=== PATIENT | female | born 1990 | race African-American/Black ===

== ENCOUNTER 2016-07-12 07:40 | Emergency (ER) | payer OTHER ==
[2016-07-12] MEDS ORDERED: IBUPROFEN 800 MG TAB As Ordered ONE (08:04)
[2016-07-12] MEDS ORDERED: METHOCARBAMOL 500 MG TAB As Ordered ONE (08:04)
--- NOTE | 2016-07-12 08:13 | EDDOCDS ---
Nurse's Notes [facility] Name: Ryan Bonner Age: 25 yrs Sex: Female : 1990 Arrival Date: 07/12/2016 Time: 07:40 Bed I5 / M5 Private MD: Diagnosis: Strain of muscle, fascia and tendon at neck level Presentation: 07/12 07:47 Presenting complaint: Patient states: Left lateral neck pain after stretching this am. mlb1 Risk Factors No acute neurological deficit is noted. Adult Sepsis Screening: The patient does not have new or worsening altered mentation. Patient's respiratory rate is less than 22. Systolic blood pressure is greater than 100. Patient has a qSOFA score of 0- Negative Sepsis Screen. Suicide/Homicide risk assessment- the patient denies having any suicidal and/or homicidal ideations and does not present with any other emotional, behavioral or mental health complaints. Status: The patient is a dependent. Transition of care: patient was not received from another setting of care. 07:47 Acuity: VEL Level 4 mlb1 07:47 Method Of Arrival: Walkin/Carried/Asstd mlb1 Triage Assessment: 07:48 General: Appears distressed, uncomfortable, Behavior is cooperative, crying. Pain: mlb1 Location: left posterior aspect of neck and left lateral aspect of neck Pain currently is 9 out of 10 on a pain scale. HIV screening NA for this visit Offered previously. 08:11 Musculoskeletal: Reports pain in left lateral aspect of neck and left posterior aspect dy of neck. 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 none - PMHx: none; - PSHx: none; - Social history: Smoking status: Patient states was never smoker of tobacco. No barriers to communication noted, The patient speaks fluent Malawian, Speaks appropriately for age. - Family history: Not pertinent. - : The pt / caregiver states he / she is not on anticoagulants. Home medication list is obtained from the patient. - Exposure Risk Screening:: None identified. Screenin:10 Screening information is obtained from the patient. Fall risk: No risks identified. dy Assistance ADL's: requires no assistance with activities of daily living. Abuse/DV Screen: The patient / caregiver reports he/she is: not in a situation that causes fear, pain or injury. Nutritional screening: No deficits noted. Advance Directives: There is no active DNR order. home support is adequate. Assessment: 08:11 General: Appears in no apparent distress, Behavior is cooperative. Pain: Location: left dy lateral aspect of neck and left posterior aspect of neck. Neurological: Level of Consciousness is awake, alert, obeys commands, Oriented to person, place, time. Respiratory: Airway is patent Respiratory effort is even, unlabored. Derm: Skin is pink, warm & dry. Vital Signs: 07:49 BP 149 / 95; Pulse 110; Resp 16; Temp 99.6(TE); Pulse Ox 100% on R/A; Weight 52.16 kg mlb1 (R); Height 5 ft. 6 in. (167.64 cm) (R); Pain 9/10; 07:49 Body Mass Index 18.56 (52.16 kg, 167.64 cm) mlb1 Vitals: 07:49 Log In Time: July 12, 2016 at 07:41. mlb1 ED Course: 07:41 Patient visited by Mayra Tolentino Reg. hs2 07:41 Patient moved to Waiting hs2 07:47 Patient visited by Eleazar Nicholson, RN. mlb1 07:48 Triage Initiated mlb1 07:49 Patient visited by Eleazar Nicholson, RN. mlb1 07:49 Vani Blue,STEPHEN is Primary Nurse. mlb1 07:49 Patient moved to I5 / M5 mlb1 07:51 [facility]. btw 07:51 Sanjay Harding MD is Attending Physician. btw 07:51 Patient visited by Oc Chauhan PA. btw 07:58 [facility] is Referral Physician. btw 08:07 [facility] Payment Agreement was scanned into [employer] and attached to record. mm15 08:10 The patient / caregiver is instructed regarding the plan of care and ED course. Patient dy has correct armband on for positive identification. 08:10 No IV's were initiated during this patient's visit. No procedures done that require dy assistance. Administered Medications: 08:09 Drug: Methocarbamol 1 grams [methocarbamol 500 mg tablet (2 tabs)] Route: PO; dy 08:09 Drug: Ibuprofen 800 mg [ibuprofen 800 mg tablet (1 tabs)] Route: PO; dy Order Results: There are currently no results for this order. Outcome: 07:59 Discharge ordered by Provider. btw 08:10 Discharge Assessment: patient administered narcotics - no. The following High Risk dy Discharge criteria are identified: None. Discharged to home ambulatory. Condition: good. Discharge instructions given to patient, Instructed on discharge instructions, follow up and referral plans. medication usage, no driving heavy equipment, no drinking with medication, Demonstrated understanding of instructions, medications, Pt was receptive of discharge instructions/ teaching. Prescriptions given X 2. No special radiology studies were completed. Property sent home with patient. 08:11 Patient left the ED. dy Signatures: Zaire Osullivan RN RN Eleazar Santamaria RN RN mlb1 Oc Chauhan PA PA btw McGrath, Marlynn mm15 Mayra Tolentino, Reg Reg hs2 LEONID
--- NOTE | 2016-07-12 08:13 | EDDOCDS ---
Physician Documentation [facility] Name: Ryan Bonner Age: 25 yrs Sex: Female : 1990 Arrival Date: 07/12/2016 Time: 07:40 Bed I5 / M5 Private MD: Disposition: 07/12 08:05 [facility] pharmacy is closed so a printed RX was provided as there would be a delay in btw patient care to provide an electronic prescription. Disposition: 07/12/16 07:59 Discharged to Home/Self Care. Impression: Strain of muscle, fascia and tendon at neck level. - Condition is Stable. - Discharge Instructions: Muscle Cramps and Spasms, Mcnd-il-Varf, Muscle Strain, Ddky-gv-Gqec. - Prescriptions for Robaxin 500 mg Oral Tablet - take 1 tablet by ORAL route every 6 hours As needed; 40 tablet. Diclofenac Sodium 75 mg Oral Tablet, Delayed Release (E.C.) - take 1 tablet by ORAL route 2 times per day; 30 tablet. - Medication Reconciliation, Local Pharmacy Hours form. - Follow up: Constantin Nunez, [facility]; When: 1 - 2 days; Reason: Further diagnostic work-up, Recheck today's complaints, Continuance of care. - Problem is new. - Symptoms are unchanged. Historical: - Allergies: no known allergies; - Home Meds: 1. none - PMHx: none; - PSHx: none; - Social history: Smoking status: Patient states was never smoker of tobacco. No barriers to communication noted, The patient speaks fluent [place] Citizen, Speaks appropriately for age. - Family history: Not pertinent. - : The pt / caregiver states he / she is not on anticoagulants. Home medication list is obtained from the patient. - Exposure Risk Screening:: None identified. 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 6 in. (167.64 cm) (R); Pain 9/10; 07:49 Body Mass Index 18.56 (52.16 kg, 167.64 cm) mlb1 MDM: 07:58 Methocarbamol 1 grams PO once ordered. btw 07:58 Ibuprofen 800 mg PO once ordered. btw 08:03 Financial registration complete. mm15 08:07 [facility] Payment Agreement was scanned into [employer] and attached to record. mm15 Administered Medications: 08:09 Drug: Methocarbamol 1 grams [methocarbamol 500 mg tablet (2 tabs)] Route: PO; dy 08:09 Drug: Ibuprofen 800 mg [ibuprofen 800 mg tablet (1 tabs)] Route: PO; dy Signatures: Zaire Osullivan RN RN dy Eleazar Nicholson RN RN mlb1 Oc Chauhan PA PA btw Miley Keys mm15 The chart was reviewed and I authenticate all verbal orders and agree with the evaluation and treatment provided.Attachments: 08:07 [facility] Payment Agreement mm15 MTDD
--- NOTE | 2016-07-14 09:12 | EDDOCDS ---
Physician Documentation [facility] Name: Ryan Bonner Age: 25 yrs Sex: Female : 1990 Arrival Date: 07/12/2016 Time: 07:40 Bed I5 / M5 Private MD: Disposition: 07/12 08:05 [facility] pharmacy is closed so a printed RX was provided as there would be a delay in btw patient care to provide an electronic prescription. Disposition: 07/12/16 07:59 Discharged to Home/Self Care. Impression: Strain of muscle, fascia and tendon at neck level. - Condition is Stable. - Discharge Instructions: Muscle Cramps and Spasms, Sbmk-[id number]-[id number], Muscle Strain, Bqba-cz-Epav. - Prescriptions for Robaxin 500 mg Oral Tablet - take 1 tablet by ORAL route every 6 hours As needed; 40 tablet. Diclofenac Sodium 75 mg Oral Tablet, Delayed Release (E.C.) - take 1 tablet by ORAL route 2 times per day; 30 tablet. - Medication Reconciliation, Local Pharmacy Hours form. - Follow up: Constantin Nunez, [facility]; When: 1 - 2 days; Reason: Further diagnostic work-up, Recheck today's complaints, Continuance of care. - Problem is new. - Symptoms are unchanged. Historical: - Allergies: no known allergies; - Home Meds: 1. none - PMHx: none; - PSHx: none; - Social history: Smoking status: Patient states was never smoker of tobacco. No barriers to communication noted, The patient speaks fluent Zambian, Speaks appropriately for age. - Family history: Not pertinent. - : The pt / caregiver states he / she is not on anticoagulants. Home medication list is obtained from the patient. - Exposure Risk Screening:: None identified. 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 6 in. (167.64 cm) (R); Pain 9/10; 07:49 Body Mass Index 18.56 (52.16 kg, 167.64 cm) mlb1 MDM: 07:58 Methocarbamol 1 grams PO once ordered. btw 07:58 Ibuprofen 800 mg PO once ordered. btw 08:03 Financial registration complete. mm15 08: [facility] Payment Agreement was scanned into [employer] and attached to record. mm15 07/13 09:47 T-Sheet-- Draft Copy was scanned into [employer] and attached to record. gb Administered Medications: 07/12 08:09 Drug: Methocarbamol 1 grams [methocarbamol 500 mg tablet (2 tabs)] Route: PO; dy 08:09 Drug: Ibuprofen 800 mg [ibuprofen 800 mg tablet (1 tabs)] Route: PO; dy Signatures: Kyara Conklin, Reg Reg gb Zaire Osullivan RN RN dy Eleazar Nicholson RN RN mlb1 Oc Chauhan PA PA btw Miley Keys mm15 The chart was reviewed and I authenticate all verbal orders and agree with the evaluation and treatment provided.Attachments: [facility] Payment Agreement mm15 07/13 09:47 T-Sheet-- Draft Copy gb Chart Complete MTDD
--- NOTE | 2016-07-14 09:13 | EDDOCDS ---
Physician Documentation [facility] Name: Ryan Bonner Age: 25 yrs Sex: Female : 1990 Arrival Date: 07/12/2016 Time: 07:40 Bed I5 / M5 Private MD: Disposition: 07/12 08:05 [facility] pharmacy is closed so a printed RX was provided as there would be a delay in btw patient care to provide an electronic prescription. Disposition: 07/12/16 07:59 Discharged to Home/Self Care. Impression: Strain of muscle, fascia and tendon at neck level. - Condition is Stable. - Discharge Instructions: Muscle Cramps and Spasms, Xujs-es-Cnak, Muscle Strain, Wrkz-bq-Ttbr. - Prescriptions for Robaxin 500 mg Oral Tablet - take 1 tablet by ORAL route every 6 hours As needed; 40 tablet. Diclofenac Sodium 75 mg Oral Tablet, Delayed Release (E.C.) - take 1 tablet by ORAL route 2 times per day; 30 tablet. - Medication Reconciliation, Local Pharmacy Hours form. - Follow up: Constantin Nunez, [facility]; When: 1 - 2 days; Reason: Further diagnostic work-up, Recheck today's complaints, Continuance of care. - Problem is new. - Symptoms are unchanged. Historical: - Allergies: no known allergies; - Home Meds: 1. none - PMHx: none; - PSHx: none; - Social history: Smoking status: Patient states was never smoker of tobacco. No barriers to communication noted, The patient speaks fluent Nauruan, Speaks appropriately for age. - Family history: Not pertinent. - : The pt / caregiver states he / she is not on anticoagulants. Home medication list is obtained from the patient. - Exposure Risk Screening:: None identified. 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 6 in. (167.64 cm) (R); Pain 9/10; 07:49 Body Mass Index 18.56 (52.16 kg, 167.64 cm) mlb1 MDM: 07:58 Methocarbamol 1 grams PO once ordered. btw 07:58 Ibuprofen 800 mg PO once ordered. btw 08:03 Financial registration complete. mm15 08: [facility] Payment Agreement was scanned into [employer] and attached to record. mm15 07/13 09:47 T-Sheet-- Draft Copy was scanned into [employer] and attached to record. gb Administered Medications: 07/12 08:09 Drug: Methocarbamol 1 grams [methocarbamol 500 mg tablet (2 tabs)] Route: PO; dy 08:09 Drug: Ibuprofen 800 mg [ibuprofen 800 mg tablet (1 tabs)] Route: PO; dy Signatures: Kyara Conklin, Reg Reg gb Zaire Osullivan RN RN dy Eleazar Nicholson RN RN mlb1 Oc Chauhan PA PA btw Miley Keys mm15 The chart was reviewed and I authenticate all verbal orders and agree with the evaluation and treatment provided.Attachments: [facility] Payment Agreement mm15 07/13 09:47 T-Sheet-- Draft Copy gb Chart Complete MTDD
--- NOTE | 2016-07-14 09:13 | EDDOCDS ---
Nurse's Notes [facility] Name: Ryan Bonner Age: 25 yrs Sex: Female : 1990 Arrival Date: 07/12/2016 Time: 07:40 Bed I5 / M5 Private MD: Diagnosis: Strain of muscle, fascia and tendon at neck level Presentation: 07/12 07:47 Presenting complaint: Patient states: Left lateral neck pain after stretching this am. mlb1 Risk Factors No acute neurological deficit is noted. Adult Sepsis Screening: The patient does not have new or worsening altered mentation. Patient's respiratory rate is less than 22. Systolic blood pressure is greater than 100. Patient has a qSOFA score of 0- Negative Sepsis Screen. Suicide/Homicide risk assessment- the patient denies having any suicidal and/or homicidal ideations and does not present with any other emotional, behavioral or mental health complaints. Status: The patient is a dependent. Transition of care: patient was not received from another setting of care. 07:47 Acuity: VEL Level 4 mlb1 07:47 Method Of Arrival: Walkin/Carried/Asstd mlb1 Triage Assessment: 07:48 General: Appears distressed, uncomfortable, Behavior is cooperative, crying. Pain: mlb1 Location: left posterior aspect of neck and left lateral aspect of neck Pain currently is 9 out of 10 on a pain scale. HIV screening NA for this visit Offered previously. 08:11 Musculoskeletal: Reports pain in left lateral aspect of neck and left posterior aspect dy of neck. 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 none - PMHx: none; - PSHx: none; - Social history: Smoking status: Patient states was never smoker of tobacco. No barriers to communication noted, The patient speaks fluent [place] Islander, Speaks appropriately for age. - Family history: Not pertinent. - : The pt / caregiver states he / she is not on anticoagulants. Home medication list is obtained from the patient. - Exposure Risk Screening:: None identified. Screenin:10 Screening information is obtained from the patient. Fall risk: No risks identified. dy Assistance ADL's: requires no assistance with activities of daily living. Abuse/DV Screen: The patient / caregiver reports he/she is: not in a situation that causes fear, pain or injury. Nutritional screening: No deficits noted. Advance Directives: There is no active DNR order. home support is adequate. Assessment: 08:11 General: Appears in no apparent distress, Behavior is cooperative. Pain: Location: left dy lateral aspect of neck and left posterior aspect of neck. Neurological: Level of Consciousness is awake, alert, obeys commands, Oriented to person, place, time. Respiratory: Airway is patent Respiratory effort is even, unlabored. Derm: Skin is pink, warm & dry. Vital Signs: 07:49 BP 149 / 95; Pulse 110; Resp 16; Temp 99.6(TE); Pulse Ox 100% on R/A; Weight 52.16 kg mlb1 (R); Height 5 ft. 6 in. (167.64 cm) (R); Pain 9/10; 07:49 Body Mass Index 18.56 (52.16 kg, 167.64 cm) mlb1 Vitals: 07:49 Log In Time: July 12, 2016 at 07:41. mlb1 ED Course: 07:41 Patient visited by Mayra Tolentino Reg. hs2 07:41 Patient moved to Waiting hs2 07:47 Patient visited by Eleazar Nicholson, RN. mlb1 07:48 Triage Initiated mlb1 07:49 Patient visited by Eleazar Nicholson, RN. mlb1 07:49 Vani Blue,STEPHEN is Primary Nurse. mlb1 07:49 Patient moved to I5 / M5 mlb1 07:51 [facility] btw 07:51 Sanjay Harding MD is Attending Physician. btw 07:51 Patient visited by Oc Chauhan PA. btw 07:58 [facility] is Referral Physician. btw 08:07 [facility] Payment Agreement was scanned into [employer] and attached to record. mm15 08:10 The patient / caregiver is instructed regarding the plan of care and ED course. Patient dy has correct armband on for positive identification. 08:10 No IV's were initiated during this patient's visit. No procedures done that require dy assistance. 08:47 Patient name changed from Ryan\S\\S\Woodford\S\ to Ryan\S\ \S\Woodford. EDMS 02/27 09:47 T-Sheet-- Draft Copy was scanned into [employer] and attached to record. gb Administered Medications: 07/12 08:09 Drug: Methocarbamol 1 grams [methocarbamol 500 mg tablet (2 tabs)] Route: PO; dy 08:09 Drug: Ibuprofen 800 mg [ibuprofen 800 mg tablet (1 tabs)] Route: PO; dy Order Results: There are currently no results for this order. Outcome: 07:59 Discharge ordered by Provider. btw 08:10 Discharge Assessment: patient administered narcotics - no. The following High Risk dy Discharge criteria are identified: None. Discharged to home ambulatory. Condition: good. Discharge instructions given to patient, Instructed on discharge instructions, follow up and referral plans. medication usage, no driving heavy equipment, no drinking with medication, Demonstrated understanding of instructions, medications, Pt was receptive of discharge instructions/ teaching. Prescriptions given X 2. No special radiology studies were completed. Property sent home with patient. 08:11 Patient left the ED. dy Signatures: Dispatcher [employer] EDKyara Zavala, Reg Reg gb Zaire Osullivan RN RN dy Barney, Michael B, RN RN mlb1 Oc Chauhan PA PA btw Miley Keys mm15 Mayra Tolentino, Reg Reg hs2 Chart Complete MTDD
== END 2016-07-12 08:11 | disposition home or self-care (01) ==
LOC: M ED 07:40
DX: M54.2 Cervicalgia (principal)